=== PATIENT | female | born 1995 | race African-American/Black ===

== ENCOUNTER 2016-11-09 17:51 | Emergency (ER) | payer OTHER ==
[2016-11-09 17:58] VITALS: BP 115/76
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
== END 2016-11-09 19:39 | disposition home or self-care (01) ==
LOC: ER 17:51
DX: S29.012A Strain of muscle and tendon of back wall of thorax, initial encounter (principal); S16.1XXA Strain of muscle, fascia and tendon at neck level, initial encounter; M54.6 Pain in thoracic spine; V49.40XA Driver injured in collision with unspecified motor vehicles in traffic accident, initial encounter; F17.200 Nicotine dependence, unspecified, uncomplicated; M62.838 Other muscle spasm
CPT/HCPCS: 72070; 99283

== ENCOUNTER → 2017-04-16 | Outpatient (CLI) | payer MEDICAID ==
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
== END ==
LOC: OD 16:55
PROVIDERS: ATTEND Nurse Practitioner Family
DX: S69.91XA Unspecified injury of right wrist, hand and finger(s), initial encounter (principal); X58.XXXA Exposure to other specified factors, initial encounter; Y93.9 Activity, unspecified; Y92.9 Unspecified place or not applicable; Y99.9 Unspecified external cause status

== ENCOUNTER 2017-04-20 02:10 | Emergency (ER) | payer SELFPAY ==
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
[2017-04-20] MEDS ORDERED: PREDNISONE 20 MG TABLET PO ONE (04:37)
--- NOTE | 2017-04-20 04:39 | ER Document Report ---
ED Hand/Wrist Injury - General Chief Complaint: Hand Swelling Stated Complaint: RIGHT HAND SWOLLEN Time Seen by Provider: 04/20/17 02:59 Mode of Arrival: Ambulatory Information source: Patient Notes: Patient is a 21-year-old female who presents to the ER today for right hand swelling. Patient states it has been going on for approximately 4 days now. She did go to urgent care and they did an x-ray which was negative 3 days ago. Patient states that she has been "punching a bunch of stuff." She denies any history of rheumatoid arthritis or lupus, other diseases that cause joint swelling. She denies any pain unless the hand is squeezed. She denies any numbness or tingling. She denies any swelling anywhere else. She denies fever , chills or redness. TRAVEL OUTSIDE OF THE [place] IN LAST 30 DAYS: No - Related Data Allergies/Adverse Reactions: Sulfa (Sulfonamide Antibiotics) Allergy (Verified 11/09/16 17:56) Past Medical History - General Information source: Patient - Social History Smoking Status: Smoker,Current Status Unk Chew tobacco use (# tins/day): No Frequency of alcohol use: None Drug Abuse: None Family History: Hypertension. denies: CAD, CVA, DM, Hyperlipidemia, Malignancy , Thyroid Disfunction Patient has suicidal ideation: No Patient has homicidal ideation: No Renal/ Medical History: Denies: Hx Peritoneal Dialysis Musculoskeltal Medical History: Denies Hx Arthritis, Denies Hx Muscle Weakness, Denies Hx Musculoskeletal Deformity, Denies Hx Musculoskeletal Trauma Traumatic Medical History: Denies: Hx Fractures Past Surgical History: Reports: Hx Oral Surgery - wisdom tooth - Immunizations Immunizations up to date: Yes Hx Diphtheria, Pertussis, Tetanus Vaccination: Yes - 2013 Review of Systems - Review of Systems Constitutional: No symptoms reported EENT: No symptoms reported Cardiovascular: No symptoms reported Respiratory: No symptoms reported Gastrointestinal: No symptoms reported Genitourinary: No symptoms reported Female Genitourinary: No symptoms reported Musculoskeletal: No symptoms reported Skin: See HPI Hematologic/Lymphatic: No symptoms reported Neurological/Psychological: No symptoms reported Physical Exam - Vital signs Vitals: Temp Pulse Resp BP Pulse Ox 97.8 F 79 18 118/68 100 04/20/17 02:12 04/20/17 02:12 04/20/17 02:12 04/20/17 02:12 04/20/17 02:12 - Notes Notes: PHYSICAL EXAMINATION: GENERAL: Well-appearing and in no acute distress. HEAD: Atraumatic, normocephalic. EYES: Pupils equal round and reactive to light, extraocular movements intact, sclera anicteric, conjunctiva are normal. NECK: Normal range of motion, supple without lymphadenopathy LUNGS: CTAB and equal. No wheezes rales or rhonchi. HEART: Regular rate and rhythm without murmurs EXTREMITIES: Normal range of motion, no pitting edema. No cyanosis. NEUROLOGICAL: Cranial nerves grossly intact. Normal sensory/motor exams. PSYCH: Normal mood, normal affect. SKIN: Warm, Dry, normal turgor, edema to dorsal right hand not involving digits , tender to palpation over carpal bones entirely Course - Re-evaluation Re-evalutation: 04/20/17 05:42 X-ray of the right hand negative for any acute pathology. Rheumatoid factor negative. Patient advised to stop punching things and placed in Bryan wrap. - Vital Signs Vital signs: Temp Pulse Resp BP Pulse Ox 98.1 F 66 18 118/72 99 04/20/17 05:06 04/20/17 05:06 04/20/17 05:06 04/20/17 05:06 04/20/17 05:06 Discharge - Discharge Clinical Impression: Swelling of right hand Condition: Stable Disposition: HOME, SELF-CARE Additional Instructions: Return immediately for any new or worsening symptoms. Follow up with primary care provider, call tomorrow to make followup appointment. Prescriptions: Prednisone 40 mg PO DAILY #10 tablet Forms: Return to Work
[2017-04-20 05:07] VITALS: BP 118/72
== END 2017-04-20 05:08 | disposition home or self-care (01) ==
LOC: ER 02:10
DX: M79.89 Other specified soft tissue disorders (principal); F17.200 Nicotine dependence, unspecified, uncomplicated
CPT/HCPCS: 99283; 36415; 86430; 73130; J7512

== ENCOUNTER 2017-11-16 21:03 | Emergency (ER) | payer MEDICAID, OTHER ==
--- NOTE | 2017-11-16 23:08 | ER Document Report ---
ED GI/ <THIAGO SAMUELS - Last Filed: 11/17/17 01:58> - General Mode of Arrival: Ambulatory Information source: Patient TRAVEL OUTSIDE OF THE [place] IN LAST 30 DAYS: No <JORDAN MEDRANO - Last Filed: 11/17/17 05:19> - General Chief Complaint: Vaginal Discharge Stated Complaint: VAGINAL DISCHARGE Time Seen by Provider: 11/16/17 22:57 Notes: Patient is a 22-year-old female presenting to the emergency department with vaginal discharge 1 month. Patient states the discharge is white in color, does not itch, but is malodorous. Patient admits to suprapubic discomfort, denies CVA tenderness. patient's last menstrual period was October 08 she is patient admits to one current sexual partner, states she is on Depo. Patient denies any medical problems states she is allergic to sulfa drugs. (JORDAN MEDRANO) - Related Data Allergies/Adverse Reactions: Sulfa (Sulfonamide Antibiotics) Allergy (Verified 11/16/17 21:17) Past Medical History - General Information source: Patient - Social History Smoking Status: Never Smoker Frequency of alcohol use: Social Drug Abuse: None Lives with: Alone Family History: Hypertension. denies: CAD, CVA, DM, Hyperlipidemia, Malignancy , Thyroid Disfunction Renal/ Medical History: Denies: Hx Peritoneal Dialysis Musculoskeletal Medical History: Denies Hx Arthritis, Denies Hx Muscle Weakness , Denies Hx Musculoskeletal Deformity, Denies Hx Musculoskeletal Trauma Traumatic Medical History: Denies: Hx Fractures Past Surgical History: Reports: Hx Oral Surgery - wisdom tooth - Immunizations Immunizations up to date: Yes Hx Diphtheria, Pertussis, Tetanus Vaccination: Yes - 2013 <JORDAN MEDRANO - Last Filed: 11/17/17 05:19> Review of Systems - Review of Systems Constitutional: No symptoms reported EENT: No symptoms reported Cardiovascular: No symptoms reported Respiratory: No symptoms reported Gastrointestinal: See HPI Genitourinary: See HPI Female Genitourinary: See HPI Musculoskeletal: No symptoms reported Skin: No symptoms reported Hematologic/Lymphatic: No symptoms reported Neurological/Psychological: No symptoms reported <JORDAN MEDRANO - Last Filed: 11/17/17 05:19> Physical Exam - Genitourinary External exam: No: Vesicles Speculum exam: Vaginal discharge Vaginal bleeding: None Bimanuel exam: No: Cervical motion tender, Adnexal mass, Adnexal tenderness <THIAGO SAMUELS - Last Filed: 11/17/17 01:58> - Vital signs Vitals: Temp Pulse Resp BP Pulse Ox 98.1 F 85 20 127/78 H 100 11/16/17 21:56 11/16/17 21:56 11/16/17 21:56 11/16/17 21:56 11/16/17 21:56 - Notes Notes: GENERAL: Alert, interacts well. No acute distress. HEAD: Normocephalic, atraumatic. EYES: Pupils equal, round, and reactive to light. Extraocular movements intact. ENT: Oral mucosa moist, tongue midline. NECK: Full range of motion. Supple. Trachea midline. LUNGS: Clear to auscultation bilaterally, no wheezes, rales, or rhonchi. No respiratory distress. HEART: Regular rate and rhythm. No murmur ABDOMEN: Soft, minor suprapubic pain upon palpation. Non-distended. Bowel sounds present in all 4 quadrants. GENITOURINARY: Minor white discharge noted in the cul-de-sac. EXTREMITIES: Moves all 4 extremities spontaneously. No edema, normal radial and dorsalis pedis pulses bilaterally. No cyanosis. BACK: no cervical, thoracic, lumbar midline tenderness. No saddle anesthesia, normal distal neurovascular exam. NEUROLOGICAL: Alert and oriented x3. Normal speech. [cranial nerves II through XII grossly intact]. PSYCH: Normal affect, normal mood. SKIN: Warm, dry, normal turgor. No rashes or lesions noted. (THIAGO SAMUELS) Course <THIAGO SAMUELS - Last Filed: 11/17/17 01:58> <JORDAN MEDRANO - Last Filed: 11/17/17 05:19> - Re-evaluation Re-evalutation: Patient presents to emergency department with vaginal discharge. Wet mount reveals bacterial vaginosis, we will treat for same. Patient unwilling to wait for GC test results, will treat for both prophylactically. Talk to patient about not drinking with Flagyl, and to refrain from sexual intercourse for the next 7 days. Without cervical motion tenderness or fever PID unlikely. (JORDAN MEDRANO) - Vital Signs Vital signs: Temp Pulse Resp BP Pulse Ox 98.6 F 74 16 132/64 H 98 11/17/17 02:20 11/17/17 02:20 11/17/17 02:20 11/17/17 02:20 11/17/17 02:20 - Laboratory Laboratory results interpreted by me: 11/17/17 00:40 Urine Urobilinogen 2.0 H Discharge <THIAGO SAMUELS - Last Filed: 11/17/17 01:58> <JORDAN MEDRANO - Last Filed: 11/17/17 05:19> - Discharge Clinical Impression: Bacterial vaginosis, Vaginal discharge Condition: Stable Disposition: HOME, SELF-CARE Additional Instructions: You have been diagnosed and treated for a vaginal infection. Take Flagyl as prescribed. Refrain from sexual activity for the next 7 days. Follow-up with primary care or the health department for further testing. Return to emergency department should your abdominal pain increase, he developed a fever, or discharge does not stop with treatment. Prescriptions: Metronidazole [Flagyl 500 mg Tablet] 500 mg PO Q12H 7 Days #14 tablet
[2017-11-17 01:12] LABS: BACTERIA (WET MOUNT) 3+ BACTERIA SEEN; EPITHELIALS (WET MOUNT) 3+ EPITHELIALS SEEN; RBCS (WET MOUNT) NO RBCS SEEN; T.VAGINALIS (WET MOUNT) NO TRICHOMONAS SEEN; WBCS (WET MOUNT) 2+ WBCS SEEN; YEAST (WET MOUNT) NO YEAST SEEN
[2017-11-17 01:16] LABS: APPEARANCE,URINE SLIGHTLY-CLOUDY; BILIRUBIN,URINE NEGATIVE (NEGATIVE); COLOR,URINE YELLOW; GLUCOSE, URINE NEGATIVE (NEGATIVE); KETONES,URINE NEGATIVE (NEGATIVE); LEUKOCYTE ESTERASE,URINE NEGATIVE (NEGATIVE); NITRITE,URINE NEGATIVE (NEGATIVE); PROTEIN,URINE NEGATIVE (NEGATIVE); URINE SPECIFIC GRAVITY 1.024
[2017-11-17] MEDS ORDERED: METRONIDAZOLE 500 MG TABLET PO ONE (01:27)
[2017-11-17] MEDS ORDERED: AZITHROMYCIN 1 GM SUSP PACKET PO ONE (01:27)
[2017-11-17] MEDS ORDERED: CEFTRIAXONE INJ 250 MG VIAL IM ONE (01:28)
[2017-11-17] MEDS ORDERED: LIDOCAINE 1% INJ-PF (10 MG/ML) 30 ML SDV INJ ONE (01:28)
[2017-11-17 02:37] LABS: CHLAM PCR NOT DETECTED (NOT DETECT); GON PCR NOT DETECTED (NOT DETECT)
[2017-11-17 02:38] VITALS: BP 132/64
== END 2017-11-17 02:20 | disposition home or self-care (01) ==
LOC: ER 21:03
DX: N76.0 Acute vaginitis (principal); B96.89 Other specified bacterial agents as the cause of diseases classified elsewhere; R10.30 Lower abdominal pain, unspecified
CPT/HCPCS: 99283; 96372; 87210; 81025; 81001; 87491; 87591; J3490; Q0144; J0696

== ENCOUNTER 2018-02-24 20:17 | Emergency (ER) | payer OTHER ==
[2018-02-24 21:51] LABS: ABSOLUTE EOSINOPHILS # (AUTO) 0.1 10^3/uL (0.0-0.6); ABSOLUTE LYMPHOCYTES (AUTO) 2.4 10^3/uL (0.5-4.7); ABSOLUTE MONOCYTES (AUTO) 0.5 10^3/uL (0.1-1.4); ABSOLUTE NEUT (AUTO) 3.1 10^3/uL (1.7-8.2); BASOPHILS % (AUTO) 0.5 % (0-2); EOSINOPHILS % (AUTO) 1.6 % (0-6); HEMOGLOBIN 13.7 g/dL (12.0-15.5); LYMPHOCYTES % (AUTO) 38.8 % (13-45); MEAN CORPUSCULAR HEMOGLOBIN 30.4 pg (27.0-33.4); MEAN CORPUSCULAR HGB CONC 34.1 g/dL (32.0-36.0); MEAN CORPUSCULAR VOLUME 89 fl (80-97); MONOCYTES % (AUTO) 8.6 % (3-13); PLATELET COUNT 185 10^3/uL (150-450); RED BLOOD COUNT 4.49 10^6/uL (3.72-5.28); RED CELL DISTRIBUTION WIDTH 13.7 % (11.5-14.0); SEGMENTED NEUTROPHILS % (AUTO) 50.5 % (42-78); TOTAL CELLS COUNTED % (AUTO) 100 %; WHITE BLOOD COUNT 6.1 10^3/uL (4.0-10.5)
[2018-02-24 21:58] LABS: APPEARANCE,URINE CLEAR; BILIRUBIN,URINE NEGATIVE (NEGATIVE); COLOR,URINE YELLOW; GLUCOSE, URINE NEGATIVE (NEGATIVE); KETONES,URINE NEGATIVE (NEGATIVE); LEUKOCYTE ESTERASE,URINE NEGATIVE (NEGATIVE); NITRITE,URINE NEGATIVE (NEGATIVE); PROTEIN,URINE NEGATIVE (NEGATIVE); URINE SPECIFIC GRAVITY 1.013; UROBILINOGEN,URINE NEGATIVE mg/dL (<2.0)
--- NOTE | 2018-02-24 22:06 | ER Document Report ---
ED GI/ - General Chief Complaint: Vaginal Bleeding Stated Complaint: VAGINAL BLEEDING Time Seen by Provider: 02/24/18 22:05 Mode of Arrival: Ambulatory Information source: Patient Notes: Patient is a 22-year-old female with no significant past medical history who presents with persistent heavy vaginal bleeding that began January 31. Patient reports this as a "heavier than normal," has been persistent without letting up, "some days heavier than other days." Patient does report lower abdominal cramping that is been persistent but denies any other symptoms, no vaginal discharge, patient is sexually active without protection but has a Depo- Provera shot for control. TRAVEL OUTSIDE OF THE [place] IN LAST 30 DAYS: No - HPI Patient complains to provider of: Abdominal pain, Vaginal bleeding. No: Vaginal discharge Onset: Other - January 31 Timing/Duration: Gradual, Persistent Quality of pain: Cramping Severity at maximum: Moderate Severity in ED: Mild Pain Level: 1 Location: Pelvis Vaginal bleeding (Compared to normal period): Heavier Menstrual period history: Irregular Sexual history: Active Associated symptoms: Nausea. denies: Painful intercourse, Vaginal discharge Exacerbated by: Denies Relieved by: Denies Similar symptoms previously: No Recently seen / treated by doctor: No - Related Data Allergies/Adverse Reactions: Sulfa (Sulfonamide Antibiotics) Allergy (Verified 11/16/17 21:17) Past Medical History - General Information source: Patient - Social History Smoking Status: Never Smoker Cigarette use (# per day): No Chew tobacco use (# tins/day): No Frequency of alcohol use: Occasional Drug Abuse: None Lives with: Family Family History: Hypertension. denies: CAD, CVA, DM, Hyperlipidemia, Malignancy , Thyroid Disfunction Patient has suicidal ideation: No Patient has homicidal ideation: No - Past Medical History Cardiac Medical History: Reports: None Pulmonary Medical History: Reports: None EENT Medical History: Reports: None Neurological Medical History: Reports: None Endocrine Medical History: Reports: None Renal/ Medical History: Reports: None. Denies: Hx Peritoneal Dialysis Malignancy Medical History: Reports: None GI Medical History: Reports: None Musculoskeletal Medical History: Reports None, Denies Hx Arthritis, Denies Hx Muscle Weakness, Denies Hx Musculoskeletal Deformity, Denies Hx Musculoskeletal Trauma Skin Medical History: Reports None Psychiatric Medical History: Reports: None Traumatic Medical History: Reports: None. Denies: Hx Fractures Infectious Medical History: Reports: None Past Surgical History: Reports: Hx Oral Surgery - wisdom tooth - Immunizations Immunizations up to date: Yes Hx Diphtheria, Pertussis, Tetanus Vaccination: Yes - 2013 Review of Systems - Review of Systems -: Yes ROS unobtainable due to patient's medical condition Constitutional: No symptoms reported EENT: No symptoms reported Cardiovascular: No symptoms reported Respiratory: No symptoms reported Gastrointestinal: No symptoms reported Genitourinary: No symptoms reported Female Genitourinary: Heavy/abnormal periods, Vaginal bleeding. denies: Vaginal discharge, Vaginal odor, Painful intercourse Musculoskeletal: No symptoms reported Skin: No symptoms reported Hematologic/Lymphatic: No symptoms reported Neurological/Psychological: No symptoms reported -: Yes All other systems reviewed and negative Physical Exam - Vital signs Vitals: Temp Pulse Resp BP Pulse Ox 99.0 F 87 15 110/88 H 97 02/24/18 20:41 02/24/18 20:41 02/24/18 20:41 02/24/18 20:41 02/24/18 20:41 Interpretation: Normal - General General appearance: Appears well, Alert In distress: None - HEENT Head: Normocephalic, Atraumatic Eyes: Normal Pupils: PERRL - Respiratory Respiratory status: No respiratory distress Chest status: Nontender Breath sounds: Normal Chest palpation: Normal - Cardiovascular Rhythm: Regular Heart sounds: Normal auscultation Murmur: No - Abdominal Inspection: Normal Distension: No distension Bowel sounds: Normal Tenderness: Tender - Mild suprapubic and lower pelvic tenderness Organomegaly: No organomegaly - Rectal Tenderness: No - Deferred - Genitourinary Notes: Deferred - Back Back: Normal, Nontender - Extremities General upper extremity: Normal inspection, Nontender, Normal color, Normal ROM , Normal temperature General lower extremity: Normal inspection, Nontender, Normal color, Normal ROM , Normal temperature, Normal weight bearing. No: Rom's sign - Neurological Neuro grossly intact: Yes Cognition: Normal Orientation: AAOx4 [place] Coma Scale Eye Opening: Spontaneous Ronaldo Coma Scale Verbal: Oriented Ronaldo Coma Scale Motor: Obeys Commands [place] Coma Scale Total: 15 Speech: Normal Motor strength normal: LUE, RUE, LLE, RLE Sensory: Normal - Psychological Associated symptoms: Normal affect, Normal mood - Skin Skin Temperature: Warm Skin Moisture: Dry Skin Color: Normal Course - Re-evaluation Re-evalutation: 02/25/18 00:24 Plan to obtain labs, urine, test, and a pelvic ultrasound. 02/25/18 02:28 Lab work shows normal blood counts, urinalysis is negative. Ultrasound is negative for acute uterine pathology. Patient will be discharged home with return precautions and follow-up with her splitting machine feeder. The patient voices understanding and agreement with the plan. - Vital Signs Vital signs: Temp Pulse Resp BP Pulse Ox 99.0 F 87 18 113/91 H 97 02/24/18 20:41 02/24/18 20:41 02/25/18 01:00 02/25/18 01:00 02/25/18 01:01 - Laboratory Result Diagrams: 02/24/18 21:41 - Diagnostic Test Radiology reviewed: Reports reviewed Discharge - Discharge Clinical Impression: Menorrhagia Qualifiers: Menorrahagia type: with regular cycle Qualified Code(s): N92.0 - Excessive and frequent menstruation with regular cycle Condition: Good Disposition: HOME, SELF-CARE Instructions: Menorrhagia ([facility]) Additional Instructions: Please follow-up with your splitting machine feeder as scheduled. Return to the emergency department if you experience lightheadedness, dizziness, episodes of fainting, or have any other concerning symptom. Print Language: Brazilian
--- NOTE | 2018-02-25 01:49 | RADIOLOGY REPORT (SQ) ---
EXAM DESCRIPTION: US TRANSVAGINAL COMPLETED DATE/TME: 02/25/2018 23:51 CLINICAL HISTORY: 22 years, Female, Vaginal bleeding COMPARISON: None. TECHNIQUE: Transverse and longitudinal transvaginal sonographic images of the pelvis LIMITATIONS: None. FINDINGS: The uterus measures 8.0 x 4.8 x 3.5 cm. Endometrium measures 3 mm in thickness. The myometrium is homogenous. Nabothian cysts are present. Questionable cervical calcifications. The right ovary measures 4.5 x 2.4 x 2.5 cm. The left ovary measures 4.0 x 2.6 x 2.2 cm. Bilateral ovarian follicles. No solid adnexal mass. Doppler and spectral analysis with color flow was utilized. Arterial and venous flow to both ovaries. No free fluid. IMPRESSION: Nabothian cysts with questionable cervical calcifications, otherwise unremarkable exam copyright 2010 [employer] All Rights Reserved
[2018-02-25 02:47] VITALS: BP 106/69
== END 2018-02-25 02:47 | disposition home or self-care (01) ==
LOC: ER 20:17
DX: N92.0 Excessive and frequent menstruation with regular cycle (principal); R10.9 Unspecified abdominal pain; R11.0 Nausea; Z88.2 Allergy status to sulfonamides
CPT/HCPCS: 36415; 76830; 81001; 84703; 85025; 93976; 99284

== ENCOUNTER 2018-03-08 16:47 | Emergency (ER) | payer OTHER ==
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
--- NOTE | 2018-03-08 17:46 | RADIOLOGY REPORT (SQ) ---
EXAM DESCRIPTION: KNEE RIGHT 4 VIEWS COMPLETED DATE/TIME: 03/08/2018 5:37 pm REASON FOR STUDY: pain injury COMPARISON: None. NUMBER OF VIEWS: Four views. TECHNIQUE: AP, lateral, and both oblique radiographic images acquired of the right knee. LIMITATIONS: None. FINDINGS: MINERALIZATION: Normal. BONES: No acute fracture or dislocation. No worrisome bone lesions. JOINT: No effusion. SOFT TISSUES: No soft tissue swelling. No radio-opaque foreign body. OTHER: No other significant finding. IMPRESSION: No fracture or dislocation of the right knee. Joint spaces are well preserved. No knee joint effusion. TECHNICAL DOCUMENTATION: JOB ID: [id number] [employer]- All Rights Reserved Reading location - IP/workstation name: [email or web address]
[2018-03-08 18:03] VITALS: BP 124/77
== END 2018-03-08 18:02 | disposition home or self-care (01) ==
LOC: ER 16:47
DX: M25.561 Pain in right knee (principal); F17.210 Nicotine dependence, cigarettes, uncomplicated; X50.0XXA Overexertion from strenuous movement or load, initial encounter; Z88.2 Allergy status to sulfonamides
CPT/HCPCS: 99283; 99406

== ENCOUNTER 2019-06-10 18:41 | Emergency (ER) | payer BC, OTHER ==
[2019-06-10] MEDS ORDERED: IBUPROFEN 600 MG TABLET PO ONE (18:48)
[2019-06-10] MEDS ORDERED: ACETAMINOPHEN 325 MG TABLET PO ONE (18:48)
[2019-06-10 18:59] VITALS: BP 122/81
--- NOTE | 2019-06-10 19:05 | ER Document Report ---
HPI - HPI Time Seen by Provider: 06/10/19 18:44 Pain Level: 3 Context: Patient is a 23-year-old female who presents to the emergency department with a chief complaint of right knee pain. She was playing with some kids this afternoon and her knee rotated laterally. Patient has a history of a right knee injury due to a volleyball accident 5 months ago, but she has not had her knee evaluated by orthopedics. She also injured her right knee 2 years ago, according to her medical record. Patient has a history of asthma. - CONSTITUTIONAL Constitutional: DENIES: Fever, Chills - REPRODUCTIVE LMP: 05/30/2019 Reproductive: DENIES: : - MUSCULOSKELETAL Musculoskeletal: REPORTS: Extremity pain - rt knee - DERM Skin Color: Normal Skin Problems: None Past Medical History - General Information source: Patient - Social History Smoking Status: Current Every Day Smoker Chew tobacco use (# tins/day): No Frequency of alcohol use: daily 2 wine coolers Drug Abuse: None Family History: Hypertension. denies: CAD, CVA, DM, Hyperlipidemia, Malignancy, Thyroid Disfunction Patient has suicidal ideation: No Patient has homicidal ideation: No Pulmonary Medical History: Reports: Hx Asthma Renal/ Medical History: Denies: Hx Peritoneal Dialysis Musculoskeletal Medical History: Denies Hx Arthritis, Denies Hx Muscle Weakness, Denies Hx Musculoskeletal Deformity, Reports Hx Musculoskeletal Trauma - Fractured wrist Traumatic Medical History: Reports: Hx Fractures - Wrist Past Surgical History: Reports: Hx Oral Surgery - wisdom tooth - Immunizations Immunizations up to date: Yes Hx Diphtheria, Pertussis, Tetanus Vaccination: Yes - 2014 Vertical Provider Document - CONSTITUTIONAL Agree With Documented VS: Yes Exam Limitations: No Limitations General Appearance: No Apparent Distress - INFECTION CONTROL TRAVEL OUTSIDE OF THE [place] IN LAST 30 DAYS: No - HEENT HEENT: Atraumatic, Normocephalic, PERRLA - NECK Neck: Normal Inspection - RESPIRATORY Respiratory: No Respiratory Distress - CARDIOVASCULAR Cardiovascular: Regular Rate, Regular Rhythm Pulses: Normal: Popliteal - MUSCULOSKELETAL/EXTREMETIES Musculoskeletal/Extremeties: Tender - right medial knee closer to patella, No Edema. negative: FROM - decreased to right knee due to pain, Eccymosis - NEURO Level of Consciousness: Awake, Alert, Appropriate Motor/Sensory: No Motor Deficit, No Sensory Deficit - DERM Integumentary: Warm, Dry, No Rash Course - Re-evaluation Re-evalutation: 06/10/19 19:30 No evidence of a septic joint, gout flare, dislocation, or fracture on exam and imaging. Vitals wnl. At this time, I do not see an indication for labs. Will discharge with conservative measures, return precautions, and follow-up recommendations. Procedures - Immobilization Right Knee Pre-Proc Neuro Vasc Exam: Normal Immobilizer type: Crutches, Knee immobilizer Performed by: PCT Post-Proc Neuro Vasc Exam: Normal, Unchanged from pre-exam Alignment checked and good: Yes Discharge - Discharge Clinical Impression: Right knee pain Qualifiers: Chronicity: acute Qualified Code(s): M25.561 - Pain in right knee Condition: Stable Disposition: HOME, SELF-CARE Instructions: Use of Crutches ([facility]), Ice & Elevation ([facility]), Knee Immobilizing Splint ([facility]) Additional Instructions: You were seen today in the emergency department for right knee pain. Your x-ray is normal. Please rest the next couple of days, apply ice, elevate your leg, and keep off your leg until you feel better. Please follow-up with a primary care provider. See if you can get physical therapy. If you feel physical therapy, get a referral to orthopedics. Use her crutches and knee immobilizer. Use the topical pain medication as needed. Prescriptions: Diclofenac Sodium/Lidocaine [Lidovix] 1 each MC ASDIR PRN #1 combo..pkg PRN Reason: Forms: Return to Work
--- NOTE | 2019-06-10 19:14 | RADIOLOGY REPORT (SQ) ---
EXAM DESCRIPTION: KNEE RIGHT 4 VIEWS COMPLETED DATE/TIME: 06/10/2019 7:02 pm REASON FOR STUDY: right knee pain COMPARISON: None. NUMBER OF VIEWS: Four views. TECHNIQUE: AP, lateral, and both oblique radiographic images acquired of the right knee. LIMITATIONS: None. FINDINGS: MINERALIZATION: Normal. BONES: No acute fracture or dislocation. No worrisome bone lesions. No significant osteophytes. JOINT: No effusion. No chondrocalcinosis. OTHER: No other significant finding. IMPRESSION: NEGATIVE STUDY OF THE RIGHT KNEE. NO EXPLANATION FOR PAIN. TECHNICAL DOCUMENTATION: JOB ID: [id number] 2010 [employer]- All Rights Reserved Reading location - IP/workstation name: [email or web address]
== END 2019-06-10 19:43 | disposition home or self-care (01) ==
LOC: ER 18:41
DX: M25.561 Pain in right knee (principal); X50.0XXA Overexertion from strenuous movement or load, initial encounter; F17.200 Nicotine dependence, unspecified, uncomplicated
CPT/HCPCS: 99283